=== PATIENT | female | born 1975 | race Caucasian/White ===

== ENCOUNTER 2019-07-20 12:05 | Emergency (ER) | payer BC ==
[2019-07-20 13:30] VITALS: BP 132/62
--- NOTE | 2019-07-20 13:41 | UC ---
Skin Complaint HPI - HPI Summary HPI Summary: 44-year-old female presenting with left tragus infection after getting it appears one week ago. Patient states she was at the dentist 2 days ago and had to have measurements of her head done with a insert rods in her ears. Patient states she thinks this irritated the piercing and cause infection. Notes swelling and pain. Also notes redness spreading from the tragus down into her cheek. Unsure of any discharge or bleeding. Denies history of MRSA. Denies fever and chills. Denies nausea and vomiting. She is using normal saline which is not working. Patient also notes that she has a wart on the dorsal aspect of her right index finger and palmar aspect of her left thumb. Would like to know what she should do with them. - History of Current Complaint Chief Complaint: UCEar Stated Complaint: INFECTED EAR PIERCING Hx Obtained From: Patient Hx Last Menstrual Period: 07/03/19 Pain Intensity: 8 Pain Scale Used: 0-10 Numeric - Allergy/Home Medications Allergies/Adverse Reactions: Allergies Allergy/AdvReac Type Severity Reaction Status Date / Time No Known Allergies Allergy Verified 07/20/19 13:30 Home Medications: Home Medications Acetaminophen [Tylenol Extra Strength] 1,000 mg PO ONCE PRN 07/20/19 [History Confirmed 07/20/19] Sertraline* [Zoloft*] 50 mg PO DAILY 07/20/19 [History Confirmed 07/20/19] Sulfamethox/Trimethoprim DS* [Bactrim DS 800/160 TAB*] 1 tab PO BID #14 tab [Rx] PMH/Surg Hx/FS Hx/Imm Hx Previously Healthy: Yes - Surgical History Surgical History: Yes Surgery Procedure, Year, and Place: C-Sections, 2003 2009, [place] - Family History Known Family History: Positive: Hypertension - Social History Alcohol Use: None Substance Use Type: None Smoking Status (MU): Former Smoker Type: Cigarettes Amount Used/How Often: 1/2 PPD Length of Time of Smoking/Using Tobacco: 28 Years Have You Smoked in the Last Year: Yes Household Exposure Type: Cigarettes - Immunization History Most Recent Influenza Vaccination: Not the 2016/2016 Season Review of Systems All Other Systems Reviewed And Are Negative: Yes Constitutional: Positive: Negative Skin: Positive: Other - infecteed left tragus piercing, wart on right index finger and left thumb Respiratory: Positive: Negative Cardiovascular: Positive: Negative Gastrointestinal: Positive: Negative Musculoskeletal: Positive: Negative Neurological/Mental Status: Positive: Negative Physical Exam Triage Information Reviewed: Yes Appearance: Well-Appearing, No Pain Distress, Well-Nourished Vital Signs: Initial Vital Signs Temp 98.6 F 07/20/19 13:27 Pulse 86 07/20/19 13:27 Resp 18 07/20/19 13:27 BP 132/62 07/20/19 13:27 Pulse Ox 99 07/20/19 13:27 Vital Signs Reviewed: Yes Eyes: Positive: Conjunctiva Clear ENT: Positive: Hearing grossly normal, TMs normal. Negative: Trismus Neck exam: Normal Neck: Positive: Supple, Nontender, No Lymphadenopathy Respiratory: Positive: No respiratory distress, No accessory muscle use Neurological: Positive: Alert Psychological: Positive: Age Appropriate Behavior Skin: Positive: Other - erythema, warmth and edema noted of left tragus with piercing intact, yellow crusting drainage noted, red streaking from tragus down into mandible, significant TTP small 2-3mm flat wart noted on dorsal aspect of right index finger and palmar aspect of left thumb Course/Dx - Course Course Of Treatment: LET gel applied to the piercing. I then held the piercing in place with one hemostat while twisting the other end of the piercing with another hemostat to remove it. It was removed successfully. The patient's infected wound was cleansed. The patient received a shot of Rocephin here based on the significance of infection with red streaking. I also prescribed Bactrim to the patient to further treat the infection. A wound culture was sent. I informed the patient that she'll be notified with any changes in treatment that need to be made based on the results. Injected to continue with cleaning with warm water and soap that she may continue with normal saline as well. Instructed to apply warm compresses. Instructed to return or follow-up with PCP if not improving within 2-3 days. Patient voiced understanding and agreed with the treatment plan. I also discussed treatment with [id number] wart freezing and use of duct tape. Instructed to follow up with PCP if not improving within a few weeks. Patient voiced understanding and agreed with treatment plan. - Diagnoses Provider Diagnosis: Infection of left pierced ear, Viral wart on finger Discharge ED - Sign-Out/Discharge Documenting (check all that apply): Patient Departure All imaging exams completed and their final reports reviewed: No Studies - Discharge Plan Condition: Stable Disposition: HOME Prescriptions: Sulfamethox/Trimethoprim DS* [Bactrim DS 800/160 TAB*] 1 tab PO BID #14 tab Patient Education Materials: Cellulitis (ED), Pierced Earlobe Infection (ED) Referrals: Julieth Katz MD [Primary Care Provider] - If Needed Additional Instructions: Take bactrim as prescribed. You may continue to clean with normal saline. Wash gently with warm water and soap daily. Warm compresses 2-3 times daily will also help alleviate pain/infection. Return or follow up with pcp if symptoms worse or do not improve within 2-3 days. You may use over the counter wart freezer and apply duct tape to the warts to help them resolve. Follow up with your primary care provider for further evaluation of your warts if not improving within a few weeks. - Billing Disposition and Condition Condition: STABLE Disposition: Home
[2019-07-20] MEDS ORDERED: cefTRIAXone VIAL(*) 1,000 MG VIAL IM ONE (13:51)
[2019-07-20] MEDS ORDERED: Lidocaine/Epineph/Tetraca SOL 4 ML BTL (LET solution) TOPICAL ONE (14:06)
[2019-07-20] MEDS ORDERED: Lidocaine 1% MPF ** 5 ML VIAL IM ONE (14:10)
--- NOTE | 2019-07-22 18:54 | UC ---
- Progress Note Progress Note: 07/22/2019 Wound culture: positive for Staph.Aureus. Pt Rx Bactrim which reports show positive sensitivity for Bactrim PO No change. Conrad Cheung PA-C Course/Dx - Diagnoses Provider Diagnoses: Infection of left pierced ear, Viral wart on finger Discharge ED - Sign-Out/Discharge Documenting (check all that apply): Post-Discharge Follow Up All imaging exams completed and their final reports reviewed: No Studies - Discharge Plan Condition: Stable Disposition: HOME Prescriptions: Sulfamethox/Trimethoprim DS* [Bactrim DS 800/160 TAB*] 1 tab PO BID #14 tab Patient Education Materials: Cellulitis (ED), Pierced Earlobe Infection (ED) Referrals: Julieth Katz MD [Primary Care Provider] - If Needed Additional Instructions: Take bactrim as prescribed. You may continue to clean with normal saline. Wash gently with warm water and soap daily. Warm compresses 2-3 times daily will also help alleviate pain/infection. Return or follow up with pcp if symptoms worse or do not improve within 2-3 days. You may use over the counter wart freezer and apply duct tape to the warts to help them resolve. Follow up with your primary care provider for further evaluation of your warts if not improving within a few weeks. - Billing Disposition and Condition Condition: STABLE Disposition: Home
== END 2019-07-20 15:10 | disposition home or self-care (01) ==
LOC: UCEAST 12:05
DX: L08.9 Local infection of the skin and subcutaneous tissue, unspecified (principal); B07.9 Viral wart, unspecified; X58.XXXA Exposure to other specified factors, initial encounter; Y92.9 Unspecified place or not applicable; Z87.891 Personal history of nicotine dependence
CPT/HCPCS: 87070; 87077; 87186; 87205; 87640; 87641; 96372; 99212; G0463; J0696